=== PATIENT | female | born 1970 | race Caucasian/White ===

== ENCOUNTER 2016-09-05 15:00 | Outpatient (CLI) | payer OTHER ==
[~2016-09-05 15:00] MED LIST: ACYC800T PO; BUPR300T51 PO; CALCIUM PO; CYCL10TA9 PO; FLUO20CA25 PO; FLUO40CA PO; HYDR1CAP2 PO; METO50TA7 PO; NAPR550T PO; SULF1TAB38 PO; ZLP5T PO
== END 2016-09-05 15:40 ==
LOC: SLEEP 15:00
PROVIDERS: ATTEND Family Medicine
DX: R06.83 Snoring (principal); I10 Essential (primary) hypertension

== ENCOUNTER → 2017-04-12 | Outpatient (CLI) | payer OTHER ==
--- NOTE | 2017-04-13 09:42 | Diagnostic Imaging Report ---
Bilateral screening mammogram 2D views with tomosynthesis. The current study was also evaluated with a Computer Aided Detection (CAD) system. INDICATION: Screening. No current complaints stated on the questionnaire. COMPARISON: 06/30/2014. FINDINGS: The breasts are composed of heterogeneously dense parenchyma which may decrease mammographic sensitivity. There is an oval 8-mm asymmetry seen along the left MLO view and central slightly superior location with suggestion of a correlating asymmetry in the central aspect of the CC projection. The right breast demonstrates no definite abnormality. IMPRESSION: Focal compression views and ultrasound evaluation for focal asymmetry in the upper aspect of the left breast is recommended. ACR BI-RADS Category 0: Incomplete. (Needs additional imaging evaluation). Result letter will be mailed to the patient. Note: At least 10% of breast cancer is not imaged by mammography. Dictated by: Dictated on workstation # [id number]
== END ==
LOC: RAD 15:28
PROVIDERS: ATTEND Family Medicine
DX: Z12.31 Encounter for screening mammogram for malignant neoplasm of breast (principal)
CPT/HCPCS: 77067

== ENCOUNTER → 2017-04-30 | Outpatient (CLI) | payer OTHER ==
--- NOTE | 2017-04-30 20:31 | Diagnostic Imaging Report ---
EXAM: Left breast diagnostic mammogram with tomography evaluation. The current study was also evaluated with a Computer Aided Detection (CAD) system. INDICATION: Focal asymmetry in the central aspect of the left breast. FINDINGS: Focal compression views demonstrate persistent asymmetry in the central aspect of the CC and MLO views with no definitive underlying mass. IMPRESSION: Persistent asymmetry without definitive underlying mass seen. Ultrasound evaluation pending. BI-RADS 0. ACR BI-RADS Category 0: Incomplete. (Needs additional imaging evaluation). Result letter will be mailed to the patient. Note: At least 10% of breast cancer is not imaged by mammography. Dictated by: Dictated on workstation # [id number]
--- NOTE | 2017-04-30 20:32 | Diagnostic Imaging Report ---
EXAM: Left breast ultrasound. INDICATION: Focal asymmetry along the central aspect of the left breast. FINDINGS: There is minimal retroareolar duct ectasia seen. No solid mass is identified. IMPRESSION: Minimal duct ectasia is seen. No suspicious lesion is noted. The central left breast focal asymmetry seen on mammography could relate to summation artifact of parenchyma. Six-month followup mammogram to ensure stability or resolution is recommended. BI-RADS 3. ACR BI-RADS Category 3: Probably benign findings. Result letter will be mailed to the patient. Note: At least 10% of breast cancer is not imaged by mammography. Dictated by: Dictated on workstation # [id number]
== END ==
LOC: RAD 12:50
PROVIDERS: ATTEND Family Medicine
DX: N64.89 Other specified disorders of breast (principal)
CPT/HCPCS: 76642

== ENCOUNTER → 2017-10-08 | Outpatient (CLI) | payer OTHER ==
--- NOTE | 2017-10-08 21:33 | Diagnostic Imaging Report ---
INDICATION: Six-month followup left breast density. COMPARISON: Correlation is made with prior exam from 04/12/2017. 3-D CC, MLO, and 90 degree lateral views of the left breast were obtained. The current study was also evaluated with a Computer Aided Detection (CAD) system. FINDINGS: The area of focal density in the mid left breast on the CC view is no longer appreciated and may represent superimposition. No mass or suspicious calcifications are seen. Left axilla is unremarkable. IMPRESSION: No mammographic features suspicious for malignancy are seen. Patient may return in six months for bilateral screening mammography. ACR BI-RADS Category 1: Negative. Result letter will be mailed to the patient. Note: At least 10% of breast cancer is not imaged by mammography. Dictated by: Dictated on workstation # [id number]
== END ==
LOC: RAD 14:14
PROVIDERS: ATTEND Family Medicine
DX: N64.89 Other specified disorders of breast (principal)

== ENCOUNTER → 2018-04-30 | Outpatient (CLI) | payer OTHER ==
--- NOTE | 2018-05-01 20:47 | Diagnostic Imaging Report ---
INDICATION: Screening. EXAMINATION: Digital mammogram bilateral screening with 3-D tomosynthesis. The current study was also evaluated with a Computer Aided Detection (CAD) system. This study was compared to the prior exams of 10/08/2017, 04/12/2017, and 06/30/2014. At this time, there are no current complaints. FINDINGS: There are scattered fibroglandular densities in both breasts which could obscure a lesion. The small oval 8 mm asymmetry on the MLO view of the left breast seen on the prior exam of 04/12/2017 is not well appreciated on this study. That finding may have represented a cyst which has subsequently resolved. The overall appearance of the breasts has not changed significantly otherwise. There is no primary or secondary sign of malignancy noted. IMPRESSION: There is no evidence for malignancy. ACR BI-RADS Category 1: Negative. Result letter will be mailed to the patient. Note: At least 10% of breast cancer is not imaged by mammography. Dictated on workstation # [id number]
== END ==
LOC: RAD 10:12
PROVIDERS: ATTEND Family Medicine
DX: Z12.31 Encounter for screening mammogram for malignant neoplasm of breast (principal)
CPT/HCPCS: 77067

== ENCOUNTER → 2019-05-02 | Outpatient (CLI) | payer OTHER ==
--- NOTE | 2019-05-06 09:55 | Diagnostic Imaging Report ---
EXAMINATION: Digital mammogram INDICATION: Bilateral screening This study was compared to the prior exam of 04/30/2018, 10/08/2017, 04/12/17 and 06/30/2014. At this time there are no current complaints. The current study was also evaluated with a Computer Aided Detection (CAD) system. FINDINGS: The fibroglandular tissue in both breasts is heterogeneously dense. This does limit the sensitivity of this exam. Overall, there does not appear to have been any significant change when compared to the prior study. No primary or secondary sign of malignancy is noted. IMPRESSION: There is no radiographic evidence for malignancy. ACR BI-RADS Category 1: Negative. Result letter will be mailed to the patient. Note: At least 10% of breast cancer is not imaged by mammography. Dictated by: Dictated on workstation # [id number]
== END ==
LOC: RAD 15:10
PROVIDERS: ATTEND Family Medicine
DX: Z12.31 Encounter for screening mammogram for malignant neoplasm of breast (principal)
CPT/HCPCS: 77067

== ENCOUNTER → 2019-05-23 | Outpatient (CLI) | payer OTHER ==
--- NOTE | 2019-05-23 09:53 | Diagnostic Imaging Report ---
EXAMINATION: US Abdomen limited. TECHNIQUE: Multiple real-time grayscale images were obtained over the right upper quadrant in various projections. HISTORY: RUQ PAIN COMPARISON: 06/14/2011 FINDINGS: The liver is normal in size. Liver is echogenic in keeping with steatosis. No focal lesions are seen. The portal vein is patent with hepatopedal flow. Gallbladder is normal without wall thickening or pericholecystic fluid. Sonographic Reyes sign is negative. Common duct measures 4 mm. There is no biliary ductal dilation. The visualized portions of the pancreas are normal. The right kidney is normal without hydronephrosis. IMPRESSION: 1. Steatotic liver, otherwise normal exam. Dictated by: Dictated on workstation # [id number]
== END ==
LOC: RAD 08:21
PROVIDERS: ATTEND Family Medicine
DX: K76.0 Fatty (change of) liver, not elsewhere classified (principal)
CPT/HCPCS: 76705

== ENCOUNTER → 2019-06-16 | Outpatient (CLI) | payer OTHER ==
[~2019-06-16] MED LIST changes: +CATHETER FLUSH 10 ML SYR IV PRN
--- NOTE | 2019-06-16 14:59 | Diagnostic Imaging Report ---
INDICATION: Abdominal pain. EXAMINATION: Hepatobiliary scan with gallbladder ejection. TECHNIQUE: 5.41 mCi of technetium 99m Choletec was given intravenously. One can of Ensure was given 45 minutes into the study. FINDINGS: There is homogeneous uptake of isotope throughout the liver. The cystic duct and common duct are both patent. The calculated ejection fraction was 12.5%. IMPRESSION: The cystic duct and common duct are both patent. Dictated by: Dictated on workstation # [id number]
== END ==
LOC: CARD 12:39
PROVIDERS: ATTEND Family Medicine
DX: R10.9 Unspecified abdominal pain (principal)
CPT/HCPCS: 78227

== ENCOUNTER 2019-06-24 06:06 | Outpatient (CLI) | payer OTHER ==
[~2019-06-24] VITALS: Ht 172 cm; Wt 108.6 kg
[~2019-06-24 06:06] MED LIST changes: -CATHETER FLUSH 10 ML SYR IV PRN
[2019-06-24] MEDS ORDERED: ACYC400T PO (13:29)
[2019-06-24] MEDS ORDERED: METH20TA36 PO (13:29)
[2019-06-24] MEDS ORDERED: ALPR0.5T7 PO (13:29)
[2019-06-24] MEDS ORDERED: BUPR150T7 PO (13:29)
[2019-06-24] MEDS ORDERED: OMEG1000 PO (13:29)
[2019-06-24] MEDS ORDERED: OMEP40CA27 PO (13:29)
[2019-06-24] MEDS ORDERED: METO100T12 PO (13:29)
[2019-06-24] MEDS ORDERED: AMIT50TA3 PO (13:29)
[2019-06-24] MEDS ORDERED: SACC250C PO (13:29)
[2019-06-24] MEDS ORDERED: LOSA1TAB26 PO (13:29)
[2019-06-24] MEDS ORDERED: CHOL500061 PO (13:29)
[2019-06-24] MEDS ORDERED: CYAN250014 PO (13:29)
== END 2019-06-24 13:40 | disposition home or self-care (01) ==
LOC: PREOP 06:06
PROVIDERS: ATTEND Surgery
DX: Z01.818 Encounter for other preprocedural examination (principal)

== ENCOUNTER 2019-06-26 07:46 | Day surgery (SDC) | payer OTHER ==
--- NOTE | 2019-06-24 08:59 | HISTORY AND PHYSICAL ---
DATE OF SERVICE: PROCEDURE DATE: 06/26/2019. ATTENDING PHYSICIAN: Aaliyah Haq DO. HISTORY OF PRESENT ILLNESS: The patient is a 49-year-old female, who was referred over to us for 1 to 2 year history of worsening diarrhea as well as crampy abdominal pain. She reports that she first noticed this becoming worse over the past year and has had even what she reports as pale-colored stools. She does report episodes of bloating as well as nausea and reflux. She does report that at time she will even get a sharp epigastric pain and this is usually worse with milk as well as greasy fried foods. She was seen by her primary care physician. An ultrasound was performed, which was unremarkable. She then underwent a HIDA scan, which did come back with a gallbladder ejection fraction of 12.5% consistent with a biliary dyskinesia. PAST MEDICAL HISTORY: Hypertension, anxiety, depression, gastroesophageal reflux disease, genital herpes, ADHD, insomnia, SIBO and IBS. PAST SURGICAL HISTORY: Appendectomy and drainage of ovarian cyst in 1984, D and C in 1983, tonsillectomy in 1990, D and C in 1999, partial hysterectomy in 2009, EGD and colonoscopy in 05/2018. ALLERGIES: ACTIFED, TRINALIN, CODEINE, HYDROCODONE. MEDICATIONS: Metoprolol 100 mg b.i.d., bupropion 150 mg b.i.d., losartan and hydrochlorothiazide 100/12.5 mg daily, omeprazole 40 mg daily, acyclovir 400 mg daily, methylphenidate 20 mg daily, vitamin D3 5000 units daily, Vitamin B12 1000 mcg daily, amitriptyline 50 mg at bedtime, Xanax 0.5 mg p.r.n., fish oil daily, and probiotic b.i.d. SOCIAL HISTORY: Negative for smoke and for alcohol. FAMILY HISTORY: Mother, hypertension. Father, diabetes, DVT, hypertension, mantle cell lymphoma diagnosed at 60 years of age. Maternal grandmother uterine cancer. Maternal grandfather, myocardial infarction. Paternal grandmother, diabetes. Paternal grandfather, hypertension. REVIEW OF SYSTEMS: Well-nourished female, in no acute distress. She is not experiencing any shortness of breath or difficulty breathing. No chest pain, palpitations or diaphoresis. She does report episodes of nausea, but no vomiting. She does report sharp to burning episodes of epigastric discomfort. She does report diarrhea, but no constipation. No red blood per rectum. No dark tarry stools. No fever or chills. No recent inadvertent weight loss. All other review of systems is negative. PHYSICAL EXAMINATION: VITAL SIGNS: Blood pressure is 132/70. Current weight is 238.3 and 5 feet 8 inches. CHEST: Clear. Good breath sounds bilaterally. HEART: Regular and no murmurs. EXTREMITIES: No lower extremity edema. Negative Homans sign. HEENT: No scleral icterus. NECK: No cervical lymphadenopathy. ABDOMEN: Soft and nondistended. There is some mild tenderness elicited upon moderately deep palpation in the epigastric region. No organomegaly. No peritoneal signs. SKIN: Warm, dry and pink. NEUROLOGIC: Awake, alert, oriented x3. ASSESSMENT AND PLAN: A 49-year-old female with a symptomatic biliary dyskinesia. At this time, we recommend proceeding with laparoscopic cholecystectomy. The risks and benefits of the procedure as well as the procedure and home care instructions were explained to the patient. The patient verbalized understanding of instructions and agrees to this plan. At this time, we will proceed with scheduling the patient for a laparoscopic cholecystectomy. Job ID: [id number] DocumentID: [id number] Dictated Date: 06/20/2019 11:45:28 Senior Center Manager Date: 06/20/2019 13:26:20 Dictated By: REGINALDO HO
[~2019-06-26] VITALS: Ht 172 cm; Wt 108.6 kg
[2019-06-26] VITALS (11 sets, daily range): BP systolic 105–132; BP diastolic 63–95
[~2019-06-26 07:46] MED LIST changes: +ACYC400T PO; +ALPR0.5T7 PO; +AMIT50TA3 PO; +BUPR150T7 PO; +CHOL500061 PO; +CYAN250014 PO; +LOSA1TAB26 PO; +METH20TA36 PO; +METO100T12 PO; +OMEG1000 PO; +OMEP40CA27 PO; +SACC250C PO
[2019-06-26] MEDS ORDERED: LACTATED RINGERS 1,000 ML IV PRN (08:07)
[2019-06-26] MEDS ORDERED: ceFAZolin 2 GM/50 ML NS 50 ML IV ONE (08:15)
[2019-06-26] MEDS ORDERED: BUP/EPI 0.5% 1:200,000 (SENSORCAINE) 30 ML VIAL ONE (08:26)
[2019-06-26] MEDS ORDERED: ROCURONIUM 50 MG/5 ML (ZEMURON) VIAL IV ONE (08:33)
[2019-06-26] MEDS ORDERED: SEVOFLURANE (ULTANE) 15 ML INHAL SOLN ONE (08:33)
[2019-06-26] MEDS ORDERED: LIDOCAINE PF 2% 5 ML (XYLOCAINE) VIAL ONE (08:33)
[2019-06-26] MEDS ORDERED: proPOfol 200 MG/20 ML (DIPRIVAN) VIAL IV ONE (08:33)
[2019-06-26] MEDS ORDERED: fentaNYL INJECTION 100 MCG/2 ML AMP ONE (08:34)
[2019-06-26] MEDS ORDERED: MIDAZOLAM 2 MG/2 ML (VERSED) VIAL ONE (08:34)
[2019-06-26] MEDS ORDERED: DEXAMETHASONE 10 MG/ML (DECADRON) 1 ML VIAL ONE (08:40)
--- NOTE | 2019-06-26 08:40 | Progress Note-Pre Operative ---
Pre-Operative Progress Note H&P Reviewed The H&P was reviewed, patient examined and no changes noted. Date Seen by Provider: Jun 26, 2019 Time Seen by Provider: 08:35 Date H&P Reviewed: Jun 26, 2019 Time H&P Reviewed: 08:30 Pre-Operative Diagnosis: Symptomatic Biliary Dyskinesia FIGUEROA ROSALES APRN Jun 26, 2019 08:40
[2019-06-26 08:41] LABS: BASOPHILS % (AUTO) 0 % (0-10); EOSINOPHILS # (AUTO) 0.2 10^3/uL (0.0-0.3); EOSINOPHILS % (AUTO) 3 % (0-10); HEMATOCRIT 41 % (35-52); LYMPHOCYTES # (AUTO) 2.5 X 10^3 (1.0-4.0); LYMPHOCYTES % (AUTO) 37 % (12-44); MEAN CORPUSCULAR HEMOGLOBIN 31 PG (25-34); MEAN CORPUSCULAR HGB CONC 34 G/DL (32-36); MEAN CORPUSCULAR VOLUME 90 FL (80-99); MEAN PLATELET VOLUME 9.8 FL (7.4-10.4); MONOCYTES # (AUTO) 0.8 X 10^3 (0.0-1.0); MONOCYTES % (AUTO) 11 % (0-12); NEUTROPHILS # (AUTO) 3.2 X 10^3 (1.8-7.8); NEUTROPHILS % (AUTO) 49 % (42-75); PLATELET COUNT 280 10^3/uL (130-400); WHITE BLOOD COUNT 6.6 10^3/uL (4.3-11.0)
[2019-06-26] MEDS ORDERED: OXYC1TAB16 PO (08:43)
--- NOTE | 2019-06-26 08:43 | Discharge Inst-Surgical ---
D/C Lap Instructions-KIDO Reconcile Patient Problems Problems Reviewed?: Yes New, Converted, or Re-Newed RX: RX on Chart Follow Up Appt in 2 weeks Activity as tolerated No driving for 24 hours No driving while on pain medications Incentive Spirometry use every 2 hours while awake Regular Diet Symptoms to Report: Fever over 101 degree F, Nausea/Vomiting Infection Signs and Symptoms to report: Increased redness, Foul odor of wound, Increased drainage Bathing instructions: May shower Operative Area Clean/Dry; Keep incision clean/dry If any problems/questions: Contact your physician or go to Emergency Room FIGUEROA ROSALES APRN Jun 26, 2019 08:43
[2019-06-26] MEDS ORDERED: fentaNYL INJECTION 100 MCG/2 ML AMP IVP PRN (08:45)
[2019-06-26] MEDS ORDERED: ONDANSETRON 4 MG/2 ML (SDV) Z0FRAN IVP PRN ×2 (08:45→10:30)
[2019-06-26] MEDS ORDERED: oxyCODONE/APAP 5/325MG (PERCOCET 5) TABLET PO PRN (08:45)
[2019-06-26] MEDS ORDERED: ACETAMINOPHEN 325 MG TABLET PO PRN (08:45)
[2019-06-26] MEDS ORDERED: GLYCOPYRROLATE 0.2 MG/ML (ROBINUL) 2 ML VIAL ONE (09:46)
[2019-06-26] MEDS ORDERED: NEOSTIGMINE 3 MG/3 ML VIAL ONE (09:46)
--- NOTE | 2019-06-26 10:09 | Progress Note-Post Operative ---
Post-Operative Progess Note Surgeon (s)/Recoater (s) Surgeon JUAN DAWN MD Recoater: sergei kruse [employer] Pre-Operative Diagnosis Symptomatic Biliary Dyskinesia Post-Operative Diagnosis same Procedure & Operative Findings Date of Procedure 06/26/19 Procedure Performed/Findings laparoscopic cholecystectomy Anesthesia Type get Estimated Blood Loss Estimated blood loss (mL): minimal Specimens/Packing Specimens Removed gallbladder JUAN DAWN MD Jun 26, 2019 10:09
[2019-06-26] MEDS ORDERED: morphine INJ 10 MG/ML 1ML (SYR OR VIAL) IVP ONE (10:30)
--- NOTE | 2019-06-26 15:24 | OPERATIVE REPORT ---
DATE OF SERVICE: 06/26/2019 ATTENDING PRIMARY CARE PHYSICIAN: Aaliyah Haq DO PREOPERATIVE DIAGNOSIS: Symptomatic biliary dyskinesia. POSTOPERATIVE DIAGNOSIS: Symptomatic biliary dyskinesia. PROCEDURE: Laparoscopic cholecystectomy. SURGEON: Juan Dawn MD. LEGAL TRANSCRIPTIONIST: Lane Flores APRN. ANESTHESIA: General endotracheal. ESTIMATED BLOOD LOSS: Minimal. FINDINGS: A distended gallbladder with omental adhesions towards the fundus of the gallbladder, no gallstones. DISPOSITION: The patient tolerated the procedure well. INDICATIONS: The patient is a 49-year-old female who has had to history of crampy abdominal pain and diarrhea. She reports that she had a severe episode approximately 6 weeks ago after a large dinner and had pain in the right upper abdominal quadrant with radiation towards the back as well as nausea and vomiting. An ultrasound was performed, which did not show any gallstones; however, HIDA scan was performed, which did show a low ejection fraction of 12% consistent with biliary dyskinesia. DESCRIPTION OF PROCEDURE: The patient was brought to the operating room, laid supine on the table. After adequate IV pain and stated medications and general endotracheal intubation, the abdomen was prepped and draped in standard surgical fashion. A 0.5% Marcaine with epinephrine was used to anesthetize the overlying skin in the left upper abdominal quadrant and a transverse skin incision made using 15 blade. An 0 silk suture was applied to the medial aspect incision for retraction and a Veress needle inserted with low opening pressure of 0 mmHg and the abdomen was then insufflated to 15 mmHg pressure. The Veress needle removed and a 5 mm XL trocar placed followed by a 5 mm 45-degree angle laparoscope visualizing the peritoneal cavity. A 4-quadrant abdominal exploration was performed. There is slightly distended gallbladder with mild omental adhesions towards the fundus of the gallbladder, no gallbladder wall thickening. Stomach omentum, liver appeared normal. Under direct visualization, we then proceeded to place a supraumbilical 10 mm port after the skin and peritoneal lining were anesthetized using 0.5% Marcaine with epinephrine and a transverse skin incision made using a 15 blade. In a similar manner, a right upper abdominal quadrant 5 mm port was placed. The patient was then placed in reverse Trendelenburg position as well as planed right side up, left side down. The fundus of the gallbladder was then retracted anteriorly, superiorly and the omental adhesions were then taken down using electrocautery on the hook instrument. The hepatoduodenal ligament was then opened using blunt dissection as well as cautery on the hook instrument. The entire critical view of safety was identified including the triangle of Calot as well as the cystic duct and artery as the only two structures going into the gallbladder as well as the cystic plate behind the proximal gallbladder. A timeout was then taken and the cystic duct and artery were then clipped proximally and distally and cut with EndoShears. The gallbladder was then dissected off the liver bed using cautery on the hook instrument with visualization of good hemostasis as well as no leaking ducts of Luschka. The gallbladder was removed through the 10 mm port site using an EndoCatch bag. The 10 mm port site fascia and peritoneum were then closed under direct visualization using a López-Elisha device and 0 Vicryl suture. The abdomen was desufflated and remaining ports removed. All skin incisions were closed using 4-0 Monocryl running subcuticular sutures. Wounds were then cleaned and covered with Dermabond. The patient tolerated the procedure well. We will start IV normal pain medication as well as a clear liquid diet. Once she is tolerating clears, has good pain control with oral pain medications, ambulating well, we will discharge her home. She will be instructed to do no heavy lifting or exertion for the next two weeks. Job ID: [id number] DocumentID: [id number] Dictated Date: 06/26/2019 10:14:06 Cnc Mill Operator Date: 06/26/2019 15:23:19 Dictated By: JUAN DAWN MD
== END 2019-06-26 12:45 | disposition home or self-care (01) ==
LOC: SDC 07:46
PROVIDERS: ATTEND Surgery
DX: K81.1 Chronic cholecystitis (principal); K82.8 Other specified diseases of gallbladder; K66.0 Peritoneal adhesions (postprocedural) (postinfection); K58.9 Irritable bowel syndrome, unspecified; K21.9 Gastro-esophageal reflux disease without esophagitis; I10 Essential (primary) hypertension; G47.00 Insomnia, unspecified; E66.9 Obesity, unspecified; F32.9 Major depressive disorder, single episode, unspecified; F90.9 Attention-deficit hyperactivity disorder, unspecified type; F41.9 Anxiety disorder, unspecified; Z90.89 Acquired absence of other organs; Z90.710 Acquired absence of both cervix and uterus; Z68.34 Body mass index [BMI] 34.0-34.9, adult; Z79.899 Other long term (current) drug therapy; Z88.5 Allergy status to narcotic agent; Z82.49 Family history of ischemic heart disease and other diseases of the circulatory system; Z83.3 Family history of diabetes mellitus; Z80.59 Family history of malignant neoplasm of other urinary tract organ; Z80.7 Family history of other malignant neoplasms of lymphoid, hematopoietic and related tissues
CPT/HCPCS: 36415; 85025; 87081; 88304

== ENCOUNTER → 2020-05-03 | Outpatient (CLI) | payer OTHER ==
[~2020-05-03] MED LIST changes: +OXYC1TAB16 PO
--- NOTE | 2020-05-03 10:59 | Diagnostic Imaging Report ---
EXAMINATION: Bilateral mammograms. CLINICAL INDICATION: Screening. COMPARISON: 05/02/2019, 04/30/2018, and 10/08/2017. TECHNIQUE: Screening digital mammography was performed bilaterally with a Computer Aided Detection (CAD) system. FINDINGS: There are scattered fibroglandular densities bilaterally. There are a few benign-type calcifications. There is no dominant mass, spiculated lesion, or suspicious calcification is identified. The skin, nipples, and axillae are unremarkable IMPRESSION: Benign findings as above. ACR BI-RADS Category 2: Benign findings. Result letter will be mailed to the patient. Note: At least 10% of breast cancer is not imaged by mammography. Dictated by: Dictated on workstation # [id number]
== END ==
LOC: RAD 09:00
PROVIDERS: ATTEND Family Medicine
DX: Z12.31 Encounter for screening mammogram for malignant neoplasm of breast (principal)
CPT/HCPCS: 77063; 77067

== ENCOUNTER → 2021-03-08 | Outpatient (CLI) | payer OTHER ==
[~2021-03-08] MED LIST changes: -ACYC400T PO; +ACYC400T21 PO; +BUPR150T24 PO; -BUPR150T7 PO; -OMEP40CA27 PO; +OMEP40CA6 PO
[2021-03-08 10:49] VITALS: BP 122/80
== END ==
LOC: CARD 10:30
PROVIDERS: ATTEND Family Medicine
DX: R07.9 Chest pain, unspecified (principal)
CPT/HCPCS: 93017; 93306

== ENCOUNTER 2021-05-03 08:00 | Day surgery (SDC) | payer OTHER ==
[~2021-05-03] VITALS: Ht 172.7 cm; Wt 89.6 kg
[2021-05-03] VITALS (9 sets, daily range): BP systolic 102–129; BP diastolic 63–76
[2021-05-03 07:26] LABS: HEMATOCRIT 43 % (35-52); HEMOGLOBIN 14.9 g/dL (11.5-16.0); MEAN CORPUSCULAR HEMOGLOBIN 32 pg (25-34); MEAN CORPUSCULAR HGB CONC 35 g/dL (32-36); MEAN CORPUSCULAR VOLUME 92 fL (80-99); MEAN PLATELET VOLUME 9.3 fL (9.0-12.2); PLATELET COUNT 214 10^3/uL (130-400); WHITE BLOOD COUNT 7.2 10^3/uL (4.3-11.0)
[2021-05-03 07:36] LABS: INR 0.9 (0.8-1.4); PROTHROMBIN TIME PATIENT 12.5 SEC (12.2-14.7)
[2021-05-03 07:51] LABS: ALBUMIN 4.3 GM/DL (3.2-4.5); BILIRUBIN,TOTAL 0.7 MG/DL (0.1-1.0); CALCIUM 9.9 MG/DL (8.5-10.1); CREATININE SERUM 1.05 MG/DL (0.60-1.30); POTASSIUM 3.5 MMOL/L (3.6-5.0); TOTAL PROTEIN 7.1 GM/DL (6.4-8.2)
[~2021-05-03 08:00] MED LIST changes: +ACYC-112 PO; +ALPR0.254 PO; +ASPI-999 PO; +CHOL4PAC3 PO; +CYCL10TA25 PO; +HEParin (CATH LAB) 2,000 ML IV ONE; +LIDOCAINE 1% INJ 20 ML 20 ML VIAL ONE; +MECO10002 SL; +MIDAZOLAM 5 MG/5 ML (VERSED) VIAL ONE; +NS IV 1000 ML 1,000 ML IV SCH; +NS IV 1000 ML 1,000 ML ONE; +TRAZ-227 PO; +fentaNYL INJ 100 MCG/2 ML AMP ONE
--- NOTE | 2021-05-03 08:41 | Cardiac Procedure Note-CS/ASA ---
Pre-Procedure Note Pre-Op Procedure Note H&P Reviewed The H&P was reviewed, patient examined and no changes noted. Date H&P Reviewed: May 03, 2021 Time H&P Reviewed: 08:15 Conscious Sedation Pre-Proced Time 08:15 ASA Score 3 For ASA 3 and 4: Consider anesthesia and medical clearance. Also, for patients with a history of failed moderate sedation consider anesthesia. Airway Lungs Heart ASA score ASA 1: a normal healthy patient ASA 2: a patient with a mild systemic disease (mid diabetes, controlled hypertension, obesity ASA 3: a patient with a severe systemic disease that limits activity (angina, COPD, prior Myocardial infarction) ASA 4: a patient with an incapacitating disease that is a constant threat to life (CHF, renal failure) ASA 5: a moribund patient not expected to survive 24 hrs. (ruptured aneurysm) ASA 6: a declared brain- patient whose organs are being harvested. For emergent operations, add the letter E after the classification Mallampati Classification Grade 2 Sedation Plan Analgesia, Amnesia, Plan communicated to team members, Discussed options with patient/fam, Discussed risks with patient/fam The patient is an appropriate candidate to undergo the planned procedure, sedation, and anesthesia. The patient immediately re-assessed prior to indication. SHARRON NIXON MD FACP FAC [facility] May 03, 2021 08:41
--- NOTE | 2021-05-03 08:44 | Discharge Inst-Post CATH ---
Discharge Inst-CATH/EP Post Cardiac Cath/EP D/C Inst Follow Up/Plan F/u with Dr Ware in 2 weeks ACTIVITY * Go Home directly and rest. * Limit activity of the leg (or wrist if it was used) for 7 days including aerobics, swimming, jogging, bicycling, etc. * Restrict stair-climbing for 7 days if possible, if not, climb up with your no n-cath leg, then bring together on the same step. * Avoid lifting, pushing, pulling or excessive movement of the affected ext remity for 7 days. * Customary sexual activity may be resumed after 2 days-use caution not to use a position that strains or causes pain to the affected extremity. * No driving for 24 hours. * NO SMOKING. * Avoid straining for bowel movements for 7 days. * Gentle walking on level ground is allowed. * Returning to work will depend on the type of procedure and the results. Your doctor will discuss this with you. CALL YOUR DOCTOR FOR ANY OF THE FOLLOWING: *If bleeding from the puncture site occurs- Apply gentle pressure to site with clean cloth and call your doctor or EMS. * If a knot or lump forms under the skin, increases in size, or causes pain. * If bruising appears to be worsening or moving further down your leg instead of disappearing. * Temperature above 101 F. CARE OF YOUR GROIN INCISION; * Bruising or purple discoloration of the skin near the puncture site is common. * You may shower only, no bathtub bathing for 5 days. Be careful to avoid slipping as your leg may feel stiff. * If a closure device was used on your femoral artery, please see the attached guide regarding care of the device and your leg. * Leave dressing on FOR 24 hours. CARE OF YOUR WRIST INCISION; * Bruising or purple discoloration of the skin near the puncture site is common. * You may shower. * DO NOT submerge wrist. * Leave dressing on FOR 24 hours. SHARRON WARE MD [facility] May 03, 2021 08:44
--- NOTE | 2021-05-03 08:44 | Discharge Inst-Cardiology ---
Discharge Inst-Cardiac Discharge Medications Continued Medications: Acyclovir (Acyclovir) 800 Mg Tablet 800 MG PO DAILY, TAB ALPRAZolam (ALPRAZolam) 0.25 Mg Tablet 0.25 MG PO BID PRN for ANXIETY, TAB Aspirin (Aspirin) 81 Mg Tab.chew 81 MG PO DAILY, TAB Bupropion HCl (Bupropion Xl) 150 Mg Tab.er.24h 150 MG PO BID for Smoking Cessation, TAB Cholecalciferol (Vitamin D3) (Vitamin D3) 5,000 Unit Tab.rapdis 5000 UNIT PO DAILY, TAB Cholestyramine/Aspartame (Prevalite Packet) 4 Gm Powd.pack 4 GM PO 1HRAFTER AM MEDS, EACH Cholestyramine/Aspartame (Prevalite Packet) 4 Gm Powd.pack 4 GM PO HS PRN for PRN, EACH Cyclobenzaprine HCl (Cyclobenzaprine HCl) 10 Mg Tablet 10 MG PO Q8HRS PRN for MUSCLE CRAMPS, TAB Losartan/Hydrochlorothiazide (Losartan-Hctz 100-12.5 mg Tab) 1 Each Tablet 1 EACH PO DAILY, TAB Mecobalamin (B-12) 1,000 Mcg Tab.rapdis 1000 MCG SL THREE TIMES WEEKLY, TAB Metoprolol Tartrate (Metoprolol Tartrate) 100 Mg Tablet 100 MG PO BID, TAB Yale-3 Fatty Acids (Fish Oil Concentrate) 1,000 Mg Capsule 1000 MG PO DAILY, CAP Omeprazole (Omeprazole) 40 Mg Capsule.dr 40 MG PO DAILY, CAP Trazodone HCl (Trazodone HCl) 100 Mg Tablet 100 MG PO HS, TAB SHARRON NIXON MD [facility] CCDS May 03, 2021 08:44
[2021-05-03] MEDS ORDERED: NS IV 1000 ML 1,000 ML IV SCH (08:45)
[2021-05-03] MEDS ORDERED: PATIENT MAY USE OWN MEDS, ALL PO SCH (08:45)
[2021-05-03] MEDS ORDERED: ACETAMINOPHEN 325 MG TABLET ONE (09:35)
[2021-05-03] MEDS ORDERED: ACETAMINOPHEN 325 MG TABLET PO ONE (09:45)
--- NOTE | 2021-05-03 12:21 | CARDIAC CATHETERIZATION ---
DATE OF SERVICE: 05/03/2021 CARDIAC CATHETERIZATION REPORT The patient is a 51-year-old lady, who has multiple coronary artery disease risk factors and who has been having chest discomfort. A stress test was abnormal and showed multiple premature ventricular contractions including couplets and 3-beat runs of nonsustained wide complex tachycardia. Exercise capacity was low. Cardiac catheterization was recommended. Informed consent was obtained. DESCRIPTION OF PROCEDURE: She was brought to the cardiac catheterization laboratory in a fasting state. Right groin was prepared and draped in the usual sterile fashion. Lidocaine 1% was used for local anesthesia. Modified Seldinger technique was used to advance a 5-[place] sheath in right femoral artery, 5-[place] JL4 catheter for left coronary angiography, 5-[place] JR4 catheter for right coronary angiography, 5-[place] pigtail catheter was used for left heart catheterization and left ventricular angiography. Angiography of the right femoral artery was carried out through the sheath. Mynx was used to achieve hemostasis. He tolerated the procedure well. HEMODYNAMICS: Left ventricular end-diastolic pressure following coronary angiography was 11 mmHg. There was no significant pressure gradient on pullback across the aortic valve. There was no significant pressure gradient across the aortic valve. LEFT VENTRICULAR ANGIOGRAPHY: Left ventricular angiography was carried out in the right anterior oblique projection. Global left ventricular systolic function normal. No regional wall motion abnormality is seen. Left ventricular ejection fraction approximately 60%. CORONARY ANGIOGRAPHY: Left main coronary artery is free of significant disease. Left anterior descending artery is free of significant disease. Left circumflex artery is free of significant disease. Right coronary artery is dominant and does not exhibit significant disease. CONCLUSIONS: 1. No angiographically significant coronary artery disease. 2. Normal global left ventricular systolic function with ejection fraction approximately 60%. 3. Normal left ventricular end-diastolic pressure (11 mmHg). DISCUSSION AND RECOMMENDATIONS: Based on results of the study, it appears appropriate to continue a conservative approach. Current regimen, including beta blockers, is being continued. Close outpatient followup is advised. Job ID: [id number] DocumentID: [id number] Dictated Date: 05/03/2021 08:40:34 Chrome Worker Date: 05/03/2021 12:20:34 Dictated By: SHARRON NIXON MD, MA, FACP, FACC,
== END 2021-05-03 12:00 | disposition home or self-care (01) ==
LOC: CATH 08:00 → SDC 09:05 → CATH 12:00
PROVIDERS: ATTEND Internal Medicine Cardiovascular Disease
DX: R07.89 Other chest pain (principal); R94.39 Abnormal result of other cardiovascular function study; I10 Essential (primary) hypertension; F41.9 Anxiety disorder, unspecified; Z90.710 Acquired absence of both cervix and uterus; Z79.82 Long term (current) use of aspirin; Z79.899 Other long term (current) drug therapy; Z83.3 Family history of diabetes mellitus; Z80.9 Family history of malignant neoplasm, unspecified
CPT/HCPCS: 80053; 80061; 85027; 85610; 85730; 87081; 93458; C1760; C1894; 36415

== ENCOUNTER → 2021-05-04 | Outpatient (CLI) | payer OTHER ==
[~2021-05-04] MED LIST changes: -HEParin (CATH LAB) 2,000 ML IV ONE; -LIDOCAINE 1% INJ 20 ML 20 ML VIAL ONE; -MIDAZOLAM 5 MG/5 ML (VERSED) VIAL ONE; -NS IV 1000 ML 1,000 ML IV SCH; -NS IV 1000 ML 1,000 ML ONE; -fentaNYL INJ 100 MCG/2 ML AMP ONE
--- NOTE | 2021-05-04 10:51 | Diagnostic Imaging Report ---
Indication: Routine screening. Comparison is made with prior mammogram from 05/03/2020 and 04/30/2019. 2-D and 3-D bilateral screening mammography was performed with CAD. Scattered fibroglandular densities are identified bilaterally. Tiny circumscribed densities in the outer and upper left breast appears stable and most consistent with benign etiology. No spiculated mass or malignant-appearing microcalcifications are seen. Axillae are unremarkable. IMPRESSION: BI-RADS Category 2 No mammographic features suspicious for malignancy are identified. ACR BI-RADS Category 2: Benign findings. Result letter will be mailed to the patient. Note: At least 10% of breast cancer is not imaged by mammography. Dictated by: Dictated on workstation # [id number]
== END ==
LOC: RAD 10:00
PROVIDERS: ATTEND Family Medicine
DX: Z12.31 Encounter for screening mammogram for malignant neoplasm of breast (principal)
CPT/HCPCS: 77063; 77067

== ENCOUNTER → 2021-06-07 | Outpatient (CLI) | payer OTHER ==
--- NOTE | 2021-06-07 10:40 | Diagnostic Imaging Report ---
PROCEDURE: US Hepatic (Liver). TECHNIQUE: Multiple real-time grayscale images were obtained over the right upper quadrant in various projections. INDICATION: Elevated liver enzymes. COMPARISON: 05/23/2019 FINDINGS: Liver measures 16.3 cm in length. Diffuse hyperechogenicity seen on prior exam persists, but is perhaps mildly improved. No focal hepatic masses are seen. There is no sonographic evidence of intra or extrahepatic biliary duct dilatation. Gallbladder surgically absent. Visualized portions of the head and proximal body of pancreas are unremarkable. Distal body and tail are not well visualized secondary to overlying bowel gas. Right kidney measures 10.5 cm in length and has a normal sonographic appearance. There is no evidence of hydronephrosis, calculus, nor mass. There is no ascites. Visualized portions of the abdominal aorta and IVC are unremarkable. IMPRESSION: 1. Hepatic steatosis. 2. Otherwise, unremarkable right upper quadrant abdominal sonogram. Dictated by: Dictated on workstation # [id number]
== END ==
LOC: RAD 09:15
PROVIDERS: ATTEND Family Medicine
DX: K76.0 Fatty (change of) liver, not elsewhere classified (principal); R94.5 Abnormal results of liver function studies
CPT/HCPCS: 76705

== ENCOUNTER → 2021-09-14 | Outpatient (CLI) | payer OTHER ==
--- NOTE | 2021-09-14 17:36 | Diagnostic Imaging Report ---
PROCEDURE: MRI lumbar spine. TECHNIQUE: Multiplanar, multisequence MRI of the lumbar spine was performed without contrast. INDICATION: Lumbar radiculopathy. Pain. EXAMINATION: Lumbar spine MRI without contrast, 09/14/2021. COMPARISON: 08/24/2010. FINDINGS: There is normal height and alignment of the vertebral bodies. The tip of the conus is unremarkable in appearance and location. L1-L2: There is bilateral facet and ligamentum flavum hypertrophy. The central canal and neural foramina appear patent. L2-L3: There is bilateral facet and ligamentum flavum hypertrophy. There is no central or neural foraminal stenosis. L3-L4: There is disc desiccation with a mild left paracentral bulging disc. There is bilateral facet and ligamentum flavum hypertrophy. There is no central stenosis. The neural foramina appear patent. L4-L5: There is intervertebral disc space narrowing, disc desiccation and a right paracentral rather prominent disc extrusion with disc material extending proximally just posterior to the L4 vertebral body. This likely encroaches upon the transiting right L4 nerve root. It causes moderate central stenosis with some narrowing of the right lateral recess. There is bilateral facet and ligamentum flavum hypertrophy. There is moderate right neural foraminal narrowing with no significant narrowing on the left. L5-S1: There is a minimal central disc protrusion with bilateral facet hypertrophy. No central stenosis is appreciated. The neural foramina demonstrate minimal narrowing on the left, no narrowing on the right. The visualized intra-abdominal structures appear unremarkable. IMPRESSION: Multilevel degenerative findings, as described above, with a prominent extruded migrating disc emanating from the L4-L5 level and predominantly posterior to the L4 vertebral body likely encroaching upon the transiting right L4 nerve root. Other findings as above. Dictated by: Dictated on workstation # [id number]
== END ==
LOC: RAD 14:13
PROVIDERS: ATTEND Family Medicine
DX: M47.27 Other spondylosis with radiculopathy, lumbosacral region (principal); M51.16 Intervertebral disc disorders with radiculopathy, lumbar region; M48.061 Spinal stenosis, lumbar region without neurogenic claudication
CPT/HCPCS: 72148

== ENCOUNTER → 2021-09-22 | Outpatient (CLI) | payer OTHER ==
--- NOTE | 2021-09-22 16:30 | Diagnostic Imaging Report ---
Indication: Herniated lumbar disc and radiculopathy. Time of Exam: 3:39 PM There is normal lumbar lordotic curvature. Vertebral body heights and disc spaces are fairly well maintained. No fractures seen. No definite motion during flexion or extension maneuvers is identified. Impression: No acute abnormality is detected. No motion is identified during flexion or extension maneuvers. Dictated by: Dictated on workstation # [id number]
== END ==
LOC: RAD 15:25
PROVIDERS: ATTEND Neurological Surgery
DX: M51.16 Intervertebral disc disorders with radiculopathy, lumbar region (principal)
CPT/HCPCS: 72110

== ENCOUNTER → 2022-01-13 | Outpatient (CLI) | payer OTHER ==
[2022-01-13 10:10] LABS: BILIRUBIN,URINE NEGATIVE (NEGATIVE); CLARITY,URINE CLEAR; COLOR,URINE YELLOW; GLUCOSE, URINE (UA) NEGATIVE (NEGATIVE); HEMATOCRIT 39 % (35-52); KETONES,URINE NEGATIVE (NEGATIVE); LEUKOCYTE ESTERASE ,URINE NEGATIVE (NEGATIVE); MEAN CORPUSCULAR HEMOGLOBIN 32 pg (25-34); MEAN CORPUSCULAR HGB CONC 33 g/dL (32-36); MEAN CORPUSCULAR VOLUME 97 fL (80-99); MEAN PLATELET VOLUME 9.3 fL (9.0-12.2); NITRITE,URINE NEGATIVE (NEGATIVE); PH,URINE 5.5 (5-9); PLATELET COUNT 303 10^3/uL (130-400); PROTEIN,URINE NEGATIVE (NEGATIVE); WHITE BLOOD COUNT 7.4 10^3/uL (4.3-11.0)
[2022-01-13 10:16] LABS: ALBUMIN 4.1 GM/DL (3.2-4.5)
[2022-01-13 10:17] LABS: POTASSIUM 4.4 MMOL/L (3.6-5.0)
[2022-01-13 10:18] LABS: CALCIUM 9.4 MG/DL (8.5-10.1)
[2022-01-13 10:19] LABS: TOTAL PROTEIN 6.4 GM/DL (6.4-8.2)
[2022-01-13 10:21] LABS: BILIRUBIN,TOTAL 0.2 MG/DL (0.1-1.0)
--- NOTE | 2022-01-13 10:22 | Diagnostic Imaging Report ---
INDICATION: Day 13 of Covid, still testing positive, shortness of air. TECHNIQUE: Two view chest 10:15 AM CORRELATION STUDY: None FINDINGS: The heart size, mediastinal configuration and pulmonary vasculature are within normal limits. The lungs are clear with no consolidating infiltrate. There is no significant pleural effusion or pneumothorax. Visualized osseous structures are unremarkable. Cholecystectomy clips. IMPRESSION: 1. Negative for acute abnormality of the chest. Dictated by: Dictated on workstation # [id number]
[2022-01-13 10:23] LABS: BACTERIA,URINE FEW /HPF; CREATININE SERUM 0.82 MG/DL (0.60-1.30)
== END ==
LOC: RAD 09:39
PROVIDERS: ATTEND Family Medicine
DX: R06.02 Shortness of breath (principal); U09.9 Post COVID-19 condition, unspecified
CPT/HCPCS: 36415; 71046; 80053; 81000; 85027; 85379

== ENCOUNTER → 2022-02-02 | Outpatient (CLI) | payer OTHER ==
--- NOTE | 2022-02-02 09:54 | Diagnostic Imaging Report ---
PROCEDURE: US left lower extremity venous. TECHNIQUE: Multiple real-time grayscale images were obtained over the left lower extremity in various projections. Additional duplex Doppler and color Doppler images were also obtained. INDICATION: Left lower extremity pain and edema. There is no evidence of left lower extremity DVT. Left lower extremity deep venous system shows normal compressibility with normal response to augmentation and Valsalva. No fluid collection or mass is detected. IMPRESSION: No evidence of left lower extremity DVT. Dictated by: Dictated on workstation # [id number]
== END ==
LOC: RAD 08:36
PROVIDERS: ATTEND Family Medicine
DX: M79.661 Pain in right lower leg (principal); R60.0 Localized edema; L53.9 Erythematous condition, unspecified

== ENCOUNTER → 2022-05-08 | Outpatient (CLI) | payer OTHER ==
--- NOTE | 2022-05-08 13:15 | Diagnostic Imaging Report ---
INDICATION: Routine screening. COMPARISON: 05/04/2021 and 05/03/2020. TECHNIQUE: 2D and 3D bilateral screening mammography was performed with CAD. FINDINGS: Both breasts are heterogeneously dense, limiting the sensitivity of mammography. Benign nodules in the upper outer left breast appear stable. A benign nodule in the outer right breast appears stable. No spiculated mass or malignant-appearing microcalcifications are seen. The axillae are unremarkable. IMPRESSION: No mammographic features suspicious for malignancy are identified. ACR BI-RADS Category 2: Benign findings. Result letter will be mailed to the patient. Note: At least 10% of breast cancer is not imaged by mammography. Dictated on workstation # [id number]
== END ==
LOC: RAD 08:30
PROVIDERS: ATTEND Family Medicine
DX: Z12.31 Encounter for screening mammogram for malignant neoplasm of breast (principal)
CPT/HCPCS: 77063; 77067

== ENCOUNTER 2022-07-12 19:32 | Emergency (ER) | payer OTHER ==
[~2022-07-12] VITALS: Ht 172.7 cm; Wt 88.4 kg
[2022-07-12] MEDS ORDERED: FAMOTIDINE 20 MG (PEPCID) TABLET PO STA (19:50)
[2022-07-12] MEDS ORDERED: ANTACID SUSP 30 ML UDC (MYLANTA) PO ONE (20:00)
[2022-07-12] MEDS ORDERED: LIDOCAINE 2% VISCOUS 15 ML UDC PO ONE (20:00)
--- NOTE | 2022-07-12 20:00 | ED Chest Pain ---
General Chief Complaint: Chest Pain Stated Complaint: CHEST PAIN, FINGERS TINGLING Nursing Triage Note: PATIENT STATES HAS HAD INTERMITTENT CHEST PAIN TODAY. STATES FIRST TIME AT WORK, MIDLINE CHEST PAIN. PATIENT STATES SECOND TIME 45 MIN PRIOR TO ARRIVAL PATIENT STATES TO A TRAMADOL AT 1800. PATIENT STATES SHE VOMITTED THIS EVENING AFTER THE CHEST PAIN. PATIENT STATES AT THIS TIME 1:10 PAIN IN CHEST. STATED NORMAL HEART CATH WITH IN THE LAST YEAR. Source: patient Exam Limitations: no limitations History of Present Illness Date Seen by Provider: Jul 12, 2022 Time Seen by Provider: 19:38 Initial Comments Here with report of intermittent chest pain that started about 3:30 PM today. States that she had with this she has had a couple episodes of diarrhea and epigastric pain that started to radiate up into her chest. Vomiting. Stated the pain went away but came back and she started getting tingling in her fingers and now hands. Reports that she follows with Dr. Haq and has had heart cath with Dr Ware in the last year that was normal. Does have history of ulcers and thought this may be related to that but was concerned when the pain went to her chest and then she had the tingling in her hands. She does admit to breathing a little faster. Denies blood in her vomit or diarrhea. Denies fever but did have chills and sweating with the diarrhea and vomiting episodes. She did take a tramadol at about 6 PM. States her pain is essentially gone currently. She declines aspirin due to history of ulcer. Timing/Duration: 4-6 hours, changing over time Severity/Quality: moderate, aching, burning Location: central, epigastric Radiation: other (Central chest) Activities at Onset: none Prior CP/Workup: cardiac cath, stress test Modifying Factors: improves with rest ASA po COMMUNITY FACILITATOR: No (Declines due to ulcer) NTG SL COMMUNITY FACILITATOR: No Associated Symptoms: abdominal pain; No back pain, No dizziness, No fever/chills; nausea/vomiting; No shortness of breath, No weakness Allergies and Home Medications Allergies Coded Allergies: hydrocodone (Verified Allergy, Mild, HIVES, 06/24/19) codeine (Unverified Adverse Reaction, Mild, HIVES, 08/25/10) Patient Home Medication List Home Medication List Reviewed: Yes ALPRAZolam (ALPRAZolam) 0.25 Mg Tablet, 0.25 MG PO BID PRN for ANXIETY, (Reported) Entered as Reported by: EDISON HANKS on 05/03/21 07 Acyclovir (Acyclovir) 800 Mg Tablet, 800 MG PO DAILY, (Reported) Entered as Reported by: EDISON HANKS on 05/03/21740 Aspirin (Aspirin) 81 Mg Tab.chew, 81 MG PO DAILY, (Reported) Entered as Reported by: EDISON HANKS on 05/03/21741 Bupropion HCl (Bupropion Xl) 150 Mg Tab.er.24h, 150 MG PO BID, (Reported) Entered as Reported by: EMELI PARR on 06/24/19 132 Cholecalciferol (Vitamin D3) (Vitamin D3) 5,000 Unit Tab.rapdis, 5,000 UNIT PO DAILY, (Reported) Entered as Reported by: EMELI PARR on 06/24/19 132 Cholestyramine/Aspartame (Prevalite Packet) 4 Gm Powd.pack, 4 GM PO 1HRAFTER AM MEDS, (Reported) Entered as Reported by: EDISON HANKS on 05/03/21741 Cholestyramine/Aspartame (Prevalite Packet) 4 Gm Powd.pack, 4 GM PO HS PRN for PRN, (Reported) Entered as Reported by: EDISON HANKS on 05/03/21741 Cyclobenzaprine HCl (Cyclobenzaprine HCl) 10 Mg Tablet, 10 MG PO Q8HRS PRN for MUSCLE CRAMPS, (Reported) Entered as Reported by: EDISON HANKS on 05/03/21741 Losartan/Hydrochlorothiazide (Losartan-Hctz 100-12.5 mg Tab) 1 Each Tablet, 1 EACH PO DAILY, (Reported) Entered as Reported by: EMELI PARR on 06/24/19 132 Mecobalamin (B-12) 1,000 Mcg Tab.rapdis, 1,000 MCG SL THREE TIMES WEEKLY, (Reported) Entered as Reported by: EDISON HANKS on 05/03/21740 Metoprolol Tartrate (Metoprolol Tartrate) 100 Mg Tablet, 100 MG PO BID, (Reported) Entered as Reported by: EMELI PARR on 06/24/19 1329 [place]-3 Fatty Acids (Fish Oil Concentrate) 1,000 Mg Capsule, 1,000 MG PO DAILY, (Reported) Entered as Reported by: EMELI PARR on 06/24/19 1329 Omeprazole (Omeprazole) 40 Mg Capsule.dr, 40 MG PO DAILY, (Reported) Entered as Reported by: EMELI PARR on 06/24/19 1329 Trazodone HCl (Trazodone HCl) 100 Mg Tablet, 100 MG PO HS, (Reported) Entered as Reported by: EDISON HANKS on 05/03/21 0742 Review of Systems Review of Systems Constitutional: see HPI; No chills, No fever EENTM: No Nose Congestion, No Throat Pain Respiratory: Denies Cough, Denies Shortness of Air Cardiovascular: Chest Pain; Denies Edema Gastrointestinal: Abdominal Pain, Diarrhea, Nausea, Vomiting Genitourinary: No Symptoms Reported Musculoskeletal: no symptoms reported Psychiatric/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: No Symptoms Reported Past Flbaqef-Hjvyjn-Apmdqv Hx Patient Social History Tobacco Use?: No Substance use?: Yes Substance type: Marijuana Substance frequency: Several times a month Alcohol Use?: Yes Alcohol Frequency: Once in a while Immunizations Up To Date Influenza Vaccine Up-to-Date: Yes; Up-to-Date First/Initial COVID19 Vaccinat: 2020 Second COVID19 Vaccination Cliff: 2020 Seasonal Allergies Seasonal Allergies: Yes Past Medical History Surgery/Hospitalization HX: HERNIATED DISC, APPY, CHOLY, T&A, ULCER, HEART CATH 2021 Surgeries: Yes (D&C X2, OVARIAN CYSTECTOMY, WISDOM TEETH, ) Adenoidectomy, Appendectomy, Hysterectomy, Tonsillectomy Respiratory: No Cardiac: Yes Hypertension 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: No 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 HIV/AIDS: No Genitourinary: No Gastrointestinal: Yes (ABD PAIN) Gastroesophageal Reflux, Chronic Diarrhea, Gall Bladder Disease Musculoskeletal: No Endocrine: No HEENT: No Loss of Vision: Denies Hearing Impairment: Denies Psychosocial: Yes Anxiety, Depression Integumentary: No Blood Disorders: No Adverse Reaction/Blood Tranf: No (N/A) Family Medical History Reviewed Nursing Family Hx Heart Disease, Hypertension, Vascular Disease Physical Exam Vital Signs Vital Signs - First Documented 07/12/22 19:32 Temp 35.4 Pulse 80 Resp 20 B/P (MAP) 126/86 (99) Pulse Ox 100 O2 Delivery Room Air Capillary Refill : Less Than 3 Seconds Height, Weight, BMI Height: '" Weight: lbs. oz. kg; 29.00 BMI Method:Stated General Appearance: WD/WN, Anxious HEENT: PERRL/EOMI, Pharynx Normal Neck: Non Tender, Supple Respiratory: Lungs Clear, Normal Breath Sounds Cardiovascular: Regular Rate, Rhythm, No Murmur Gastrointestinal: Normal Bowel Sounds, Non Tender, Soft Extremity: Normal Range of Motion, Non Tender, No Calf Tenderness Neurologic/Psychiatric: Alert, Oriented x3 Skin: Normal Color, Warm/Dry Progress/Results/Core Measures Results/Orders Lab Results Laboratory Tests Test 07/12/22 19:50 Range/Units White Blood Count 6.6 4.3-11.0 10^3/uL Red Blood Count 4.45 3.80-5.11 10^6/uL Hemoglobin 14.3 11.5-16.0 g/dL Hematocrit 41 35-52 % Mean Corpuscular Volume 91 80-99 fL Mean Corpuscular Hemoglobin 32 25-34 pg Mean Corpuscular Hemoglobin Concent 35 32-36 g/dL Red Cell Distribution Width 11.9 10.0-14.5 % Platelet Count 254 130-400 10^3/uL Mean Platelet Volume 9.2 9.0-12.2 fL Immature Granulocyte % (Auto) 0 % Neutrophils (%) (Auto) 88 H 42-75 % Lymphocytes (%) (Auto) 8 L 12-44 % Monocytes (%) (Auto) 3 0-12 % Eosinophils (%) (Auto) 1 0-10 % Basophils (%) (Auto) 0 0-10 % Neutrophils # (Auto) 5.8 1.8-7.8 10^3/uL Lymphocytes # (Auto) 0.5 L 1.0-4.0 10^3/uL Monocytes # (Auto) 0.2 0.0-1.0 10^3/uL Eosinophils # (Auto) 0.0 0.0-0.3 10^3/uL Basophils # (Auto) 0.0 0.0-0.1 10^3/uL Immature Granulocyte # (Auto) 0.0 0.0-0.1 10^3/uL Neutrophils % (Manual) 86 % Lymphocytes % (Manual) 7 % Monocytes % (Manual) 1 % Band Neutrophils 6 % Blood Morphology Comment NORMAL Prothrombin Time 11.8 L 12.2-14.7 SEC INR Comment 0.8 0.8-1.4 Activated Partial Thromboplast Time 24 24-35 SEC Sodium Level 138 135-145 MMOL/L Potassium Level 3.3 L 3.6-5.0 MMOL/L Chloride Level 100 98-107 MMOL/L Carbon Dioxide Level 22 21-32 MMOL/L Anion Gap 16 H 5-14 MMOL/L Blood Urea Nitrogen 29 H 7-18 MG/DL Creatinine 1.02 0.60-1.30 MG/DL Estimat Glomerular Filtration Rate 66 BUN/Creatinine Ratio 28 Glucose Level 119 H 70-105 MG/DL Calcium Level 9.8 8.5-10.1 MG/DL Corrected Calcium 9.4 8.5-10.1 MG/DL Magnesium Level 1.7 1.6-2.4 MG/DL Total Bilirubin 0.7 0.1-1.0 MG/DL Aspartate Amino Transf (AST/SGOT) 369 H 5-34 U/L Alanine Aminotransferase (ALT/SGPT) 205 H 0-55 U/L Alkaline Phosphatase 103 40-136 U/L Myoglobin 21.9 10.0-92.0 NG/ML Troponin I < 0.028 <0.028 NG/ML Total Protein 7.1 6.4-8.2 GM/DL Albumin 4.5 3.2-4.5 GM/DL Lipase 30 8-78 U/L My Orders Orders - JIM LEVY MD Ekg Tracing (07/12/22 19:37) Cbc With Automated Diff (07/12/22 19:50) Magnesium (07/12/22 19:50) Chest 1 View, Ap/Pa Only (07/12/22 19:50) Comprehensive Metabolic Panel (07/12/22 19:50) Myoglobin Serum (07/12/22 19:50) Protime With Inr (07/12/22 19:50) Partial Thromboplastin Time (07/12/22 19:50) O2 (07/12/22 19:50) Monitor-Rhythm Ecg Trace Only (07/12/22 19:50) Lipid Panel (07/13/22 06:00) Ed Iv/Invasive Line Start (07/12/22 19:50) Lipase (07/12/22 19:50) Troponin I Corrine (07/12/22 19:50) Lidocaine 2% Viscous 15 Ml (Xylocaine Vi (07/12/22 20:00) Famotidine Tablet (Pepcid Tablet) (07/12/22 19:50) Antacid Suspension (Mylanta Suspension (07/12/22 20:00) Manual Differential (07/12/22 19:50) Medications Given in ED Current Medications Medications Dose Ordered Sig/Rolf Route Start Time Stop Time Status Last Admin Dose Admin Al Hydrox/Mg Hydrox/Simethicone 30 ml ONCE ONCE PO 07/12/22 20:00 07/12/22 20:01 DC 07/12/22 19:56 30 ML Lidocaine HCl 15 ml ONCE ONCE PO 07/12/22 20:00 07/12/22 20:01 DC 07/12/22 19:56 15 ML Vital Signs/I&O 07/12/22 19:32 Temp 35.4 Pulse 80 Resp 20 B/P (MAP) 126/86 (99) Pulse Ox 100 O2 Delivery Room Air Blood Pressure Mean: 99 Progress Progress Note : Progress Note Seen and evaluated. IV, labs including CBC, CMP, troponin and lipase ordered. Chest x-ray and EKG ordered. ASA held due to history of ulcer and patient declining. We will give GI cocktail and Pepcid 20 mg p.o. as this may be noncardiac origin. We will continue to look for cardiac causes though. Monitor patient. Differential includes cardiac event, GI disturbance, ulcer, reflux disease, electrolyte abnormality I did review of heart catheterization results from Dr Ware from April 2021: CONCLUSIONS: 1. No angiographically significant coronary artery disease. 2. Normal global left ventricular systolic function with ejection fraction approximately 60%. 3. Normal left ventricular end-diastolic pressure (11 mmHg). 2002: Chest x-ray reviewed and I do not see any significant abnormality on my interpretation. Pending radiology review. 2028: CBC is grossly normal with normal white count and normal hemoglobin. Coags overall grossly normal range. Chemistries show normal sodium with slightly low potassium at 3.3. Normal creatinine with elevated LFTs in the 300s. Troponin is negative and myoglobin is negative. Lipase is in the normal range. 2039: Patient is overall doing much better. I do believe this is likely GI related and not cardiac related given her negative heart cath last year and negative heart labs after 4 hours of discomfort. She will follow-up with her doctor and her GI specialist. I will send a copy of the chart to her primary care physician. Discharged home with return precautions. Patient verbalized understanding of instructions and agreement with plan. We did discuss OTC famotidine to add to her medication regimen as needed. Initial ECG Impression Date: Jul 12, 2022 Initial ECG Impression Time: 19:40 Initial ECG Rate: 74 Initial ECG Rhythm: Normal Sinus Comment Sinus arrhythmia with normal axis. PVC noted. No evidence of ST elevation IA. Flat T waves throughout. Interpreted by me. Diagnostic Imaging Diagonstic Imaging: Xray Plain Films/CT/US/NM/MRI: chest Comments [facility], [place] NAME: TUCKER BULLARD Maximino [facility] REC#: [id number] PT STATUS: REG ER : 1970 PHYSICIAN: JIM LEVY MD ADMIT DATE: 07/12/22/ER Signed Date of Exam:07/12/22 CHEST 1 VIEW, AP/PA ONLY INDICATION: Chest pain. FINDINGS: The heart size, mediastinal configuration, and pulmonary vascularity are within normal limits. There is no pleural effusion, pneumothorax, or pneumonia. The osseous structures are unremarkable. IMPRESSION: No acute cardiopulmonary abnormality. Dictated by: Dictated on workstation # [id number] Dict: 07/12/222007 Trans: 07/12/222030 PJE [id number] Interpreted by: TRINITY NELSON MD Electronically signed by: TRINITY NELSON MD 07/12/222030 Departure Impression Primary Impression: Epigastric abdominal pain Additional Impressions: Chest pain Qualified Codes: R07.9 - Chest pain, unspecified Nausea vomiting and diarrhea Disposition: HOME, SELF-CARE Condition: Improved Departure-Patient Inst. Decision time for Depature: 20:41 Referrals: JUSTINA HAQ DO (PCP/Family) Primary Care Physician Patient Instructions: Chest Pain, Adult ED, Nausea and Vomiting, Adult ED, Diarrhea, Adult ED, Severe Abdominal Pain, Adult (DC) Add. Discharge Instructions: All discharge instructions reviewed with patient and/or family. Voiced understanding. Continue home medications as previously prescribed. You may add Pepcid or the generic famotidine, 20 mg once or twice daily as needed for stomach upset. Follow-up with your GI specialist. Follow-up with your doctor later this week or early next week for recheck and further evaluation as well. Return for worse pain, fever, vomiting, weakness, breathing problems or other concerns as needed. Clear a light diet for the next 24 hours and then advance as tolerated. Copy Copies To 1: JUSTINA HAQ TIMOTHY D MD Jul 12, 2022 20:00
[2022-07-12 20:01] LABS: BASOPHILS % (AUTO) 0 % (0-10); EOSINOPHILS % (AUTO) 1 % (0-10); HEMATOCRIT 41 % (35-52); HEMOGLOBIN 14.3 g/dL (11.5-16.0); LYMPHOCYTES # (AUTO) 0.5 10^3/uL (1.0-4.0); LYMPHOCYTES % (AUTO) 8 % (12-44); MEAN CORPUSCULAR HEMOGLOBIN 32 pg (25-34); MEAN CORPUSCULAR HGB CONC 35 g/dL (32-36); MEAN CORPUSCULAR VOLUME 91 fL (80-99); MEAN PLATELET VOLUME 9.2 fL (9.0-12.2); MONOCYTES # (AUTO) 0.2 10^3/uL (0.0-1.0); MONOCYTES % (AUTO) 3 % (0-12); NEUTROPHILS # (AUTO) 5.8 10^3/uL (1.8-7.8); NEUTROPHILS % (AUTO) 88 % (42-75); PLATELET COUNT 254 10^3/uL (130-400); WHITE BLOOD COUNT 6.6 10^3/uL (4.3-11.0)
[2022-07-12 20:07] LABS: INR 0.8 (0.8-1.4); PROTHROMBIN TIME PATIENT 11.8 SEC (12.2-14.7)
[2022-07-12 20:08] LABS: ALBUMIN 4.5 GM/DL (3.2-4.5); BILIRUBIN,TOTAL 0.7 MG/DL (0.1-1.0); CALCIUM 9.8 MG/DL (8.5-10.1); CREATININE SERUM 1.02 MG/DL (0.60-1.30); MAGNESIUM 1.7 MG/DL (1.6-2.4); POTASSIUM 3.3 MMOL/L (3.6-5.0); TOTAL PROTEIN 7.1 GM/DL (6.4-8.2)
--- NOTE | 2022-07-12 20:09 | Diagnostic Imaging Report ---
INDICATION: Chest pain. FINDINGS: The heart size, mediastinal configuration, and pulmonary vascularity are within normal limits. There is no pleural effusion, pneumothorax, or pneumonia. The osseous structures are unremarkable. IMPRESSION: No acute cardiopulmonary abnormality. Dictated by: Dictated on workstation # [id number]
[2022-07-12 20:20] LABS: BAND NEUTROPHILS 6 %; LYMPHOCYTES % (MANUAL) 7 %; MONOCYTES % (MANUAL) 1 %; NEUTROPHILS % (MANUAL) 86 %; RBC MORPH NORMAL
[2022-07-12 20:51] VITALS: BP 133/80
== END 2022-07-12 20:52 | disposition home or self-care (01) ==
LOC: EDUNIT# 19:32 → ER 19:33
DX: R07.9 Chest pain, unspecified (principal); R10.13 Epigastric pain; R11.2 Nausea with vomiting, unspecified; R19.7 Diarrhea, unspecified
CPT/HCPCS: 36415; 71045; 80053; 83690; 83735; 83874; 84484; 85007; 85027; 85610; 85730; 93005; 93041

== ENCOUNTER → 2022-10-31 | Outpatient (CLI) | payer OTHER ==
--- NOTE | 2022-10-31 17:39 | Diagnostic Imaging Report ---
EXAMINATION: Lumbar spine radiograph EXAM DATE: 10/31/2022 1:58 PM COMPARISON: None available. HISTORY: Low back pain TECHNIQUE: 4 views including flexion and extension. FINDINGS: Vertebral body heights and alignment are normal. No abnormal subluxation seen on flexion or extension views. Disc heights are preserved. Mild lumbar facet hypertrophy. There is mild levocurvature of the lumbar spine centered at L4-L5. The soft tissues are normal. IMPRESSION: 1. Degenerative changes and mild levocurvature of the lumbar spine without acute osseous abnormality. Dictated by: Dictated on workstation # [id number]
== END ==
LOC: RAD 13:46
PROVIDERS: ATTEND Neurological Surgery
DX: M47.26 Other spondylosis with radiculopathy, lumbar region (principal)
CPT/HCPCS: 72110